=== PATIENT | female | born 1950 | race Caucasian/White ===

== ENCOUNTER 2017-04-17 19:58 | Observation (INO) | payer OTHER ==
[~2017-04-17] VITALS: Ht 157.5 cm; Wt 73.8 kg
[~2017-04-17 19:58] MED LIST: ASPIR-LOW81 MG PO; BRILINTA90 MG PO; CALCIUM 500 MG1 EACH PO; CYCLOBENZAPRINE10 MG PO; ESTRADIOL1 MG PO; HYCET 7.5 MG-3473 ML PO; HYDROCHLOROTH12.5 M3 PO; HYDROCODON-ACE1 EAC7 PO; LISINOPRIL5 MG PO; LOPRESSOR25 MG PO; MELOXICAM7.5 MG PO; NICOTINE PATCH1 EAC2 TD; NITROSTAT0.4 MG SL; NORTRIPTYLINE H50 MG PO; PRAVASTATIN SOD80 MG PO; VENTOLIN HFA18 GM IH; VERAPAMIL HCL360 MG PR; VITAMIN D-32000 UNI2 PO; ZOFRAN4 MG PO
[2017-04-17 20:38] LABS: HEMATOCRIT 43.5 % (36.0-46.0); MCH 29.8 PG (29.0-34.0); MCHC 33.6 G/DL (30.0-36.0); MCV 88.8 FL (83-99); MEAN PLAT.VOLUME 11.9 uM^3 (9.5-12.4); PLATELET COUNT 206 K/uL (156-360); RBC DIS.WIDTH-CV 12.1 % (11.8-14.6); RBC DIS.WIDTH-SD 39.5 % (39-53)
[2017-04-17 20:48] LABS: CHLORIDE 102 mEq/L (99-109); POTASSIUM 3.3 mEq/L (3.7-5.4); SODIUM 139 mEq/L (136-147)
[2017-04-17 20:50] LABS: GLUCOSE 177 mg/dL (70-99)
[2017-04-17 20:51] LABS: ANION GAP 11 MEQ/L (2-14)
[2017-04-17 20:54] LABS: GFR ESTIMATE (CALCULATED) > 59 mL/min/
[2017-04-17 20:55] LABS: UREA NITROGEN (BUN) 12 mg/dL (9-23)
[2017-04-17 20:56] LABS: LIPASE 81 U/L (1.0-51.0)
[2017-04-17 21:02] LABS: TROP-I INTERPRETATION NEGATIVE; TROPONIN-I < 0.01 ng/mL (0.0-0.30)
[2017-04-17] MEDS ORDERED: CLOPIDOGREL75 MG PO (23:16)
[2017-04-17] MEDS ORDERED: METOPROLOL TART50 MG PO (23:17)
[2017-04-17] MEDS ORDERED: LISINOPRIL40 MG PO (23:18)
[2017-04-17] MEDS ORDERED: LO-DOSE ASPIRIN81 M1 PO (23:18)
[2017-04-17] MEDS ORDERED: PRAVASTATIN SOD40 MG PO (23:19)
[2017-04-17] MEDS ORDERED: AMLODIPINE BESY10 MG PO (23:19)
[2017-04-17] MEDS ORDERED: GABAPENTIN100 MG PO (23:21)
[2017-04-17] MEDS ORDERED: HYDROCHLOROTHIA25 MG PO (23:21)
[2017-04-18 00:04] LABS: TROP-I INTERPRETATION NEGATIVE; TROPONIN-I < 0.01 ng/mL (0.0-0.30)
[2017-04-18 01:53] VITALS: BP 105/55
[2017-04-18 05:30] VITALS: BP 107/51
[2017-04-18 06:03] LABS: TROP-I INTERPRETATION NEGATIVE; TROPONIN-I < 0.01 ng/mL (0.0-0.30)
[2017-04-18 08:09] VITALS: BP 124/58
[2017-04-18 11:28] VITALS: BP 123/61
[2017-04-18 11:56] LABS: BASOPHIL COUNT 0.1 K/uL (0-0.1); EOSINOPHIL (%) 1.7 % (0-5); EOSINOPHIL COUNT 0.2 K/uL (0-0.3); HEMATOCRIT 41.5 % (36.0-46.0); IMMATURE GRANULOCYTE (%) 0.3 % (0.0-0.7); INSTRUMENT ABS NEUTROPHIL CT 5.3 K/uL; LYMPHOCYTE COUNT 4.7 K/uL (1.0-2.8); MCH 29.2 PG (29.0-34.0); MCHC 31.8 G/DL (30.0-36.0); MCV 91.8 FL (83-99); MONOCYTE (%) 5.6 % (3-12); MONOCYTE COUNT 0.6 K/uL (0-0.8); NEUTROPHIL (%) 48.5 % (45-76); NEUTROPHIL COUNT 5.3 K/uL (1.8-6.4); PLATELET COUNT 188 K/uL (156-360); RBC DIS.WIDTH-CV 12.2 % (11.8-14.6); RED BLOOD COUNT 4.52 M/uL (3.80-5.20); WHITE BLOOD COUNT 10.9 K/uL (4.1-10.2)
[2017-04-18 12:14] LABS: ANION GAP 7 MEQ/L (2-14); CHLORIDE 103 MEQ/L (99-109); POTASSIUM 3.9 MEQ/L (3.7-5.4); SAMPLE HEMOLYSIS CHECK 0; SAMPLE ICTERIC CHECK 0; SAMPLE LIPEMIA CHECK 0; SODIUM 140 MEQ/L (136-147); TOTAL BILIRUBIN 0.4 MG/DL (0.0-1.0)
[2017-04-18 12:20] LABS: ALKALINE PHOSPHATASE 80 IU/L (3-129); GFR ESTIMATE (CALCULATED) > 59 mL/min/; LIPASE 73 U/L (1.0-51.0); UREA NITROGEN (BUN) 11 mg/dL (9-23)
[2017-04-18 12:24] LABS: TROP-I INTERPRETATION NEGATIVE; TROPONIN-I 0.01 ng/mL (0.0-0.30)
[2017-04-18 12:30] LABS: GLUCOSE 90 mg/dL (70-99)
[2017-04-18] MEDS ORDERED: BISAC-EVAC10 MG PR (14:07)
[2017-04-18 15:32] VITALS: BP 102/65
== END 2017-04-18 16:52 | disposition home or self-care (01) ==
LOC: EME 19:58 → EDOF 23:45 → 5WEST 04-18 01:32
PROVIDERS: Emergency Medicine; Physician Assistant Medical
DX: R10.13 Epigastric pain (principal); I10 Essential (primary) hypertension; E78.5 Hyperlipidemia, unspecified; J44.9 Chronic obstructive pulmonary disease, unspecified; F17.200 Nicotine dependence, unspecified, uncomplicated; G43.909 Migraine, unspecified, not intractable, without status migrainosus; G62.9 Polyneuropathy, unspecified; I25.2 Old myocardial infarction; K59.00 Constipation, unspecified; I25.10 Atherosclerotic heart disease of native coronary artery without angina pectoris; Z95.5 Presence of coronary angioplasty implant and graft; E66.9 Obesity, unspecified; Z68.30 Body mass index [BMI] 30.0-30.9, adult; R73.9 Hyperglycemia, unspecified
CPT/HCPCS: 71020; 71275; 74177; 76705; 80048; 80053; 83690; 84484; 85025; 85027; 93005; G0378; J1200; J1650; J2270; J2405; J2765; J7120

== ENCOUNTER 2017-07-19 19:33 | Observation (INO) | payer OTHER ==
[~2017-07-19] VITALS: Ht 162.6 cm; Wt 79.0 kg
[~2017-07-19 19:33] MED LIST changes: +AMLODIPINE BESY10 MG PO; +BISAC-EVAC10 MG PR; +CALCIUM 500 +1 EACH PO; -CALCIUM 500 MG1 EACH PO; +CLOPIDOGREL75 MG PO; +GABAPENTIN100 MG PO; +LISINOPRIL40 MG PO; +LO-DOSE ASPIRIN81 M1 PO; +METOPROLOL TART50 MG PO; +PRAVASTATIN SOD40 MG PO
[2017-07-19 20:30] LABS: HEMATOCRIT 42.9 % (36.0-46.0); MCH 29.8 PG (29.0-34.0); MCHC 33.1 G/DL (30.0-36.0); MCV 89.9 FL (83-99); MEAN PLAT.VOLUME 12.3 uM^3 (9.5-12.4); PLATELET COUNT 191 K/uL (156-360); RBC DIS.WIDTH-CV 12.3 % (11.8-14.6); RBC DIS.WIDTH-SD 41.1 % (39-53); RED BLOOD COUNT 4.77 M/uL (3.80-5.20); WHITE BLOOD COUNT 12.2 K/uL (4.1-10.2)
[2017-07-19 20:38] LABS: CHLORIDE 103 mEq/L (99-109); POTASSIUM 3.9 mEq/L (3.7-5.4); SODIUM 143 mEq/L (136-147)
[2017-07-19 20:41] LABS: ANION GAP 10 MEQ/L (2-14)
[2017-07-19 20:44] LABS: GFR ESTIMATE (CALCULATED) > 59 mL/min/
[2017-07-19 20:46] LABS: TROP-I INTERPRETATION NEGATIVE; TROPONIN-I < 0.01 ng/mL (0.0-0.30)
[2017-07-19 20:57] LABS: GLUCOSE 108 mg/dL (70-99)
[2017-07-19 21:02] LABS: UREA NITROGEN (BUN) 12 mg/dL (9-23)
[2017-07-19] MEDS ORDERED: FLEXERIL10 MG PO (22:30)
[2017-07-19] MEDS ORDERED: VENTOLIN HFA18 GM IH (22:31)
[2017-07-19] MEDS ORDERED: ZOFRAN ODT4 MG PO (22:32)
[2017-07-19] MEDS ORDERED: WELLBUTRIN XL150 MG PO (22:32)
[2017-07-19] MEDS ORDERED: KLOR-CON 1010 ME1 PO (22:32)
[2017-07-19] MEDS ORDERED: LEXAPRO10 MG PO (22:32)
[2017-07-20 00:26] VITALS: BP 115/56
[2017-07-20 04:09] VITALS: BP 114/61
[2017-07-20 07:11] LABS: HEMATOCRIT 41.8 % (36.0-46.0); MCH 29.6 PG (29.0-34.0); MCHC 32.8 G/DL (30.0-36.0); MCV 90.3 FL (83-99); MEAN PLAT.VOLUME 12.7 uM^3 (9.5-12.4); PLATELET COUNT 169 K/uL (156-360); RBC DIS.WIDTH-CV 12.4 % (11.8-14.6); RED BLOOD COUNT 4.63 M/uL (3.80-5.20); WHITE BLOOD COUNT 10.9 K/uL (4.1-10.2)
[2017-07-20 07:30] LABS: ANION GAP 8 MEQ/L (2-14); CHLORIDE 104 MEQ/L (99-109); GFR ESTIMATE (CALCULATED) > 59 mL/min/; GLUCOSE 81 mg/dL (70-99); HDL CHOLESTEROL 28 MG/DL (Desirable>=50); LDL CHOLESTEROL 91 mg/dL (Desirable<100); NON-HDL CHOLESTEROL 119 mg/dL (Desirable<160); POTASSIUM 3.9 MEQ/L (3.7-5.4); SAMPLE HEMOLYSIS CHECK 0; SAMPLE ICTERIC CHECK 0; SAMPLE LIPEMIA CHECK 0; SODIUM 142 MEQ/L (136-147); TOTAL CHOLESTEROL 147 mg/dL (Desirable<200); TRIGLYCERIDES 142 MG/DL (Normal: <150); UREA NITROGEN (BUN) 10 mg/dL (9-23)
[2017-07-20 07:36] LABS: TROP-I INTERPRETATION NEGATIVE; TROPONIN-I 0.01 ng/mL (0.0-0.30)
[2017-07-20 08:00] VITALS: BP 129/66
[2017-07-20 09:37] LABS: TROP-I INTERPRETATION NEGATIVE; TROPONIN-I < 0.01 ng/mL (0.0-0.30)
== END 2017-07-20 11:48 | disposition home or self-care (01) ==
LOC: RME 19:33 → EME 19:33 → EDOF 22:24 → ENRESERV 22:27 → 5WEST 07-20 00:13
PROVIDERS: Hospitalist; Nurse Practitioner Family
DX: R07.9 Chest pain, unspecified (principal); J44.9 Chronic obstructive pulmonary disease, unspecified; E78.5 Hyperlipidemia, unspecified; I10 Essential (primary) hypertension; G43.909 Migraine, unspecified, not intractable, without status migrainosus; I25.10 Atherosclerotic heart disease of native coronary artery without angina pectoris; Z95.5 Presence of coronary angioplasty implant and graft; M19.90 Unspecified osteoarthritis, unspecified site; E66.9 Obesity, unspecified; Z68.29 Body mass index [BMI] 29.0-29.9, adult; E55.9 Vitamin D deficiency, unspecified; Z98.1 Arthrodesis status; Z90.710 Acquired absence of both cervix and uterus; Z88.5 Allergy status to narcotic agent; Z88.8 Allergy status to other drugs, medicaments and biological substances; Z88.0 Allergy status to penicillin
CPT/HCPCS: 71020; 80048; 80061; 84484; 85027; 93005; 99281; 99285; G0378